=== PATIENT | female | born 1955 | race Caucasian/White ===

== ENCOUNTER → 2016-11-13 | Outpatient (CLI) | payer BC ==
[~2016-11-13] MED LIST: OMEG10007 PO; Vit D
--- NOTE | 2016-11-14 07:55 | MAMMOGRAPHY REPORT ---
BILATERAL DIGITAL SCREENING MAMMOGRAM TOMOSYNTHESIS WITH CAD: 11/13/2016 CLINICAL HISTORY: Routine screening. Patient has no complaints. TECHNIQUE: Breast tomosynthesis in addition to standard 2D mammography was performed. Current study was also evaluated with a Computer Aided Detection (CAD) system. COMPARISON: Comparison is made to exams dated: 11/10/2015 mammogram, 10/27/2014 mammogram, 10/21/2013 ma mmogram, 04/15/2013 mammogram, and 10/08/2012 ultrasound - [facility]. BREAST COMPOSITION: There are scattered areas of fibroglandular density in both breasts. FINDINGS: There is a 10 mm circumscribed reniform shaped mass in the 10:00 middle one third of the r ight breast, that appears increased in size comparing to prior mammograms. Although this could repre sent a lymph node, definitive characterization with targeted ultrasound and possible additional mammo graphic views are recommended. No other suspicious mass, architectural distortion or cluster of microcalcifications is seen bilatera lly. IMPRESSION: ACR BI-RADS CATEGORY 0: INCOMPLETE EVALUATION: NEED ADDITIONAL IMAGING EVALUATION The 10 mm circumscribed reniform shaped mass in the right 10:00 breast needs additional evaluation. The patient will be called to schedule an appointment. Approximately 10% of breast cancers are not detected with mammography. A negative mammographic report should not delay biopsy if a clinically suggestive mass is present. Opal Aldana M.D. ay/:11/13/2016 18:04:55 Route Delivery Manager: Desi Deluna RT(R)(Hair), [facility] letter sent: Addl Imaging 0 BI-RADS Code: ACR BI-RADS Category 0: Incomplete Evaluation: Need Additional Imaging Evaluation
== END | disposition home or self-care (01) ==
LOC: C.MAMM 14:49
PROVIDERS: ATTEND Obstetrics & Gynecology
DX: Z12.31 Encounter for screening mammogram for malignant neoplasm of breast (principal); N63 Unspecified lump in breast

== ENCOUNTER → 2016-11-21 | Outpatient (CLI) | payer BC ==
--- NOTE | 2016-11-21 13:50 | MAMMOGRAPHY REPORT ---
ULTRASOUND OF RIGHT BREAST: 11/21/2016 CLINICAL HISTORY: Callback from screening mammography for an enlarging 10 mm circumscribed reniform m ass in the right upper outer quadrant. No known history of cancer. COMPARISON: Comparison is made to exams dated: 11/13/2016 mammogram, 11/10/2015 mammogram, 10/27/2014 m ammogram, and 10/21/2013 mammogram - [facility]. FINDINGS: Targeted ultrasound was performed in the upper outer quadrant of the right breast to asses s for the enlarging circumscribed reniform shaped mammographic mass. In the 9:00 axis, 4 cm from the nipple, there is an intramammary lymph node. It maintains a normal morphology with thin hypoechoic cortex and central echogenic fatty hilum. It measures 9.1 x 3.9 x 5.2 mm and the cortex measures 1 m m. Although this lymph node maintains normal morphology and may simply represent a benign intramamma ry lymph node, given the interval increase in size mammographically, definitive characterization with tissue sampling is recommended. IMPRESSION: ACR BI-RADS CATEGORY 4: SUSPICIOUS - FOLLOW-UP RECOMMENDED 1. Ultrasound guided core biopsy is recommended for a 9 mm lymph node in the 9:00 right breast, 4 cm from the nipple that has increased in size comparing to prior mammograms yet maintains a normal morp hology. Differential considerations include reactive, infectious, inflammatory and neoplastic proces ses. These results and recommendations were discussed with the patient at the time of the exam. She tenta tively scheduled the biopsy prior to leaving our department. Opal Aldana M.D. ay/:11/21/2016 12:03:59 Mash Filter Press Operator: Olesya JOHNSTON(Eduardo)(Hair), [facility] letter sent: Abnormal 4/5 BI-RADS Code: ACR BI-RADS Category 4: Suspicious
== END | disposition home or self-care (01) ==
LOC: C.MAMM 10:55
PROVIDERS: ATTEND Obstetrics & Gynecology
DX: N63 Unspecified lump in breast (principal)

== ENCOUNTER → 2016-11-22 | Outpatient (CLI) | payer BC ==
--- NOTE | 2016-11-22 11:29 | Discharge Instructions ---
Discharge Instructions Procedure Procedure Date: Nov 22, 2016. Reason for visit: Right Mass. Discharge Discharge Date: Nov 22, 2016. Discharge Diagnosis: status post breast biopsy Instructions Activity Recommendations: Additional Limitations (see below) Return to School/Work: no limitations Recommended Home Diet: No Limitations Provider Instructions: ACTIVITY RECOMMENDATIONS: * No lifting, pushing, pulling or exercising the affected side for three days. RETURN TO SCHOOL/WORK: * You may return to work/school after the procedure, but do not perform any strenuous activities for 24 to 48 hours. MEDICATIONS: * Tylenol (two 325 mg) every four to six hours if needed for mild pain (if not allergic to Tylenol). DIET: * Resume previous diet. SPECIAL CARE INSTRUCTIONS: * Keep biopsy site dry for 24 hours. May shower after 24 hours, but do not soak (bathe) incision. * May remove Tegaderm (plastic patch) tomorrow AFTER showering. * Leave the steri-strips on for one week. Allow the steri-strips to fall off by themselves. If not off after one week, you may remove them. You may place a Bandaid crosswise over the strips, if desired. * Apply ice 10 minutes on and 10 minutes off as needed. * Wear a bra at bedtime to sleep more comfortably for 2-3 days. * Your referring physician should have the results after approximately 5 to 7 business days. * Call for unusual bleeding, fever, drainage, etc or if you have any questions call during normal business hours or after hours call Dr Maynard, [phone]. FOLLOW UP VISIT: Follow-up with Referring Physician as scheduled. Allergies Coded Allergies: No Known Allergies (Verified Allergy, Unknown, 04/30/02) Uncoded Allergies: N (Allergy, Unknown, 04/30/02) NKA (Allergy, Unknown, 04/30/02) Alejo Stanley Recommendations: Call your doctor if: * Temperature above 101 degrees * Pain not relieved by pain medicine ordered * There is increased drainage or redness from any incision * You have any unanswered questions or concerns. Your Doctors Instructions noted above were prepared by provider Regi Maynard. Patient Signature Section: Patient Instructions Signature Page Ginny Green Patient (or Guardian) Signature/Date: I have read and understand the instructions given to me by my caregivers. Caregiver/RN/Doctor Signature/Date: The above-named patient and/or guardian has received patient instructions on this date. + Original Patient Signature Page (only) stays with chart. Please make copy for patient.
--- NOTE | 2016-11-22 12:44 | MAMMOGRAPHY REPORT ---
ULTRASOUND GUIDED BIOPSY RIGHT BREAST: 11/22/2016 CLINICAL HISTORY: Right 9:00 breast mass. PATIENT CONSENT: The procedure, risks and benefits were discussed with the patient and informed writt en consent was obtained. A timeout was performed immediately prior to the procedure. PROCEDURE DESCRIPTION: With ultrasound guidance, aseptic technique, and lidocaine as the local anesth etic (1% lidocaine to anesthetize the skin and 1% lidocaine with epinephrine to anesthetize the deepe r tissues), the lymph node of concern in the right 9:00 breast was sampled one time with a 14-gauge A chieve biopsy needle. After the first sample was taken, there was significant bleeding at the biopsy site; hemostasis was eventually achieved after approximately 5-10 minutes of manual compression. Gi everardo the bleeding, the decision was made not to obtain any more samples. Direct pressure was applied to the site immediately post procedure and hemostasis was achieved. Immediately thereafter, a metall ic localizer clip was placed into the lymph node. No focal hematoma was noted on postprocedure ultra sound. Postprocedure unilateral mammograms were performed to confirm clip placement. The patient to lerated the procedure without complication. She was given wound care instructions. The specimens wer e sent to pathology for analysis. COMPARISON: Comparison is made to exams dated: 11/21/2016 ultrasound, 11/13/2016 mammogram, 11/10/2015 m ammogram, 10/27/2014 mammogram, 10/21/2013 mammogram, and 04/15/2013 mammogram - [facility]ter. IMPRESSION: ULTRASOUND GUIDED BIOPSY Ultrasound guided core needle biopsy of the lymph node in the right 9:00 breast, with clip placement. Only one sample was obtained due to bleeding during the procedure. The patient will receive pathol ogy results from her referring provider. Regi Maynard M.D. /:11/22/2016 11:33:02 Dust Brush Assembler: Lupe Meza, [facility]
--- NOTE | 2016-11-22 12:44 | MAMMOGRAPHY REPORT ---
UNILATERAL RIGHT DIGITAL DIAGNOSTIC MAMMOGRAM: 11/22/2016 CLINICAL HISTORY: Status post right breast biopsy. TECHNIQUE: Postprocedural right CC and ML views were obtained. COMPARISON: Comparison is made to exams dated: 11/13/2016 mammogram, 11/21/2016 ultrasound, 11/10/2015 m ammogram, 10/27/2014 mammogram, 10/21/2013 mammogram, and 04/15/2013 mammogram - [facility] nter. BREAST COMPOSITION: There are scattered areas of fibroglandular density in the right breast. FINDINGS: A new biopsy marker clip is seen within the biopsied lymph node in the right 9:00 breast. Strandy postbiopsy changes are noted, without a focal postbiopsy hematoma noted. IMPRESSION: POST PROCEDURE IMAGING FOR MARKER PLACEMENT New biopsy marker clip status post ultrasound-guided biopsy of the right 9:00 breast mass. Pathology results are pending. Approximately 10% of breast cancers are not detected with mammography. A negative mammographic report should not delay biopsy if a clinically suggestive mass is present. Regi Maynard M.D. /:11/22/2016 11:42:54 Patient Transition Specialist: Lupe Meza, [facility] BI-RADS Code: Post Procedure Imaging For Marker Placement
== END | disposition home or self-care (01) ==
LOC: C.MAMM 10:49
PROVIDERS: ATTEND Obstetrics & Gynecology
DX: N62 Hypertrophy of breast (principal)